=== PATIENT | female | born 1935 | race Caucasian/White ===

== ENCOUNTER 2023-05-11 13:01 | Outpatient (RCR) | payer MEDICARE, BC, SELFPAY ==
[2023-05-11] MEDS: INJECTAFER 265 MG IV (13:34)
[2023-05-11 13:39] VITALS: BP 124/53
[2023-05-11 14:05] VITALS: BP 117/56
== END 2023-05-12 13:41 | disposition home or self-care (01) ==
LOC: OID 13:01
PROVIDERS: ATTENDING PHYSICIAN Student in an Organized Health Care Education/Training Program
DX: D50.9 Iron deficiency anemia, unspecified (principal); I50.9 Heart failure, unspecified; N18.31 Chronic kidney disease, stage 3a; I48.0 Paroxysmal atrial fibrillation; Z79.01 Long term (current) use of anticoagulants
CPT/HCPCS: 96365; J1439

== ENCOUNTER 2023-05-16 15:05 | Emergency (ER) | payer MEDICARE, BC, SELFPAY ==
[2023-05-16] VITALS (9 sets, daily range): BP systolic 104–149; BP diastolic 42–67
[2023-05-16 16:43] LABS: % Basophils 0.4 % (0-2); % Eosinophils 1.5 % (0-6); % Immature Granulocytes 0.4 % (0-0.5); % Monocytes 9.2 % (1.7-9.3); % Neutrophils 71.5 % (42.2-75.2); Absolute Eosinophils 0.1 10^3/uL (0-0.7); Absolute Lymphocytes 1.2 10^3/uL (1.2-3.4); Absolute Monocytes 0.6 10^3/uL (0.1-0.6); Absolute Neutrophils 4.9 10^3/uL (1.4-6.5); Hemoglobin 12.6 g/dL (12.0-16.0); Mean Corp Hgb Conc. 34.1 g/dL (33.0-37.0); Mean Corpuscular Hgb 32.4 pg (27.0-31.0); Mean Corpuscular Volume 95.1 fL (81.0-99.0); Mean Platelet Volume 11.1 fL (7.4-10.4); Nucleated Red Blood Cells % 0 %; Platelet Count 198 10^3/uL (130-400); Red Blood Cell Count 3.89 10^6/uL (4.20-5.40); Red Cell Dist. Width 14.1 % (11.5-14.5); White Blood Cell Count 6.9 10^3/uL (4.8-10.8)
[2023-05-16 16:51] LABS: INR 1.43; PT 17.3 Sec (11.4-14.6)
[2023-05-16 17:04] LABS: Troponin I < 0.012 ng/ml
--- NOTE | 2023-05-16 17:52 | ED.GENMED ---
History of Present Illness
General
Chief Complaint: Chest Pain
Source: patient
Exam Limitations: none
Time Seen by Provider: 05/16/23 17:40
Travel History
Have you had any contact with someone who has COVID-19?: No
Do you have any symptoms of coronavirus? Fever > 100 degrees, chills, cough, shortness of breath, sore throat, loss of taste or smell, muscle aches, or headache?: No
History of Present Illness
History of Present Illness:
See MDM
Past History
Past History
ED Past Medical History: Arrthythmia, CHF and HTN
ED Past Surgical History: Cardiac and Orthopedic
Social History
Tobacco: Non-smoker
Alcohol: None
Phy Exam
Physical Exam
Physical Exam:
See MDM
Scores
Heart Score for Chest Pain Patients
STEMI patient?: No
History: Slightly or Non-Suspicious
ECG: Nonspecific Repolarization
Age: >/= 65 years
Risk Factors: 1 or 2 Risk Factors
Troponin: </= Normal Limit
Heart Score for Chest Pain Patients: 4
Heart Score Risk: 20.3% MACE over next 6 weeks
Course
Orders/Labs/Results
Orders:
Orders
05/16/23 15:08
Electrocardiogram (*1) Urgent
Reason for Study: Chest Pain
EKG- Treatment ONCE
05/16/23 16:28
Complete Blood Count/With Diff Urgent
Comprehensive Metabolic Panel Urgent
Prothrombin Time Urgent
Troponin I Urgent
05/16/23 18:27
Troponin I Urgent
Abnormal Lab Results
05/16/23
16:28
RBC 3.89 L 10^6/uL
(4.20-5.40)
MCH 32.4 H pg
(27.0-31.0)
MPV 11.1 H fL
(7.4-10.4)
Lymphocytes % 17.0 L %
(20.5-51.1)
PT 17.3 H Sec
(11.4-14.6)
Sodium 133 L mmol/L
(135-145)
BUN 34 H mg/dl
(7-17)
Creatinine 1.4 H mg/dL
(0.6-1.0)
Glucose 155 H mg/dl
(70-99)
AST 40 H U/L
(14-36)
ALT 40 H U/L
(0-35)
Total Protein 5.8 L g/dl
(6.3-8.2)
05/16/23 16:28
05/16/23 16:28
Vital Signs
Initial and Last Documented VS:
Initial Vital Signs
Temp Pulse Resp BP Pulse Ox
98.2 F 60 20 149/64 98
05/16/23 15:08 05/16/23 15:08 05/16/23 15:08 05/16/23 15:08 05/16/23 15:08
Last Documented Vital Signs
Temp Pulse Resp BP Pulse Ox
98.2 F 53 18 105/67 97
05/16/23 15:08 05/16/23 18:00 05/16/23 18:00 05/16/23 18:00 05/16/23 17:45
MDM/Problems Addressed
Differential Diagnosis Includes:
HPI and MDM Narrative:
87-year-old female presenting with resolved chest pain. Patient was walking after lunch and she noted a pain in her left chest that went to her left shoulder and her left neck. Did not last long. She is currently symptom-free. She is unsure if
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 However, patient states this type of pain felt a little bit different. Went into the room, patient states she already feels better and feels comfortable going home. I did
explain there is false reassurance and normal troponin so early. Patient states he feels comfortable going home but will allow a second troponin to be drawn.
I also explained my concern that her EKG shows a new right bundle branch block. Although this is not an ischemic change, it is different from her recent EKG. Patient appears unfazed by a EKG change. She believes this could be related to
electrical interference from her bladder stimulator. Patient states there is an issue with an EKG unless she can turn off her bladder stimulator but she forgot the remote at home
Regardless, she does have follow-up with cardiology in 2 weeks
Physical exam
General: Well appearing and non-toxic
HEENT: protecting airway
Neck: appears supple
CV: No evidence of cyanosis
Resp: No accessory muscle use. Lungs clear. Regular rate and rhythm
Abd: Non-distended
Extremities: No deformities. No leg edema. Reproducible left shoulder pain with shoulder range of motion. Extremity neurovascular intact
Neuro: alert
Psych: Normal affect
Skin: Intact
Problems Addressed including Acute and Chronic Conditions affecting care:
1. Chest pain
Acuity: acute
Prognosis: stable
Details: Initial troponin negative. Will repeat troponin. She has been pain-free ever since she has been in the emergency department
Updates
Troponin negative x 2. She feels comfortable going home. Discussed return precautions
Differential Diagnosis (but not limited to): ACS, shoulder pain, none cardiac chest pain
Testing considered: D-dimer but symptoms resolved and she is on Eliquis
Drug therapy (if applicable): OTC meds, please see d/c instruction regarding Rx drugs
Amount and/or Complexity of Data Reviewed
Clinical info obtained from: Patient
External data reviewed: N/A
Labs I independently reviewed (but not limited to): Troponin negative x 2
Radiology: N/A
Pulse Ox: not hypoxic
EKG independently reviewed: Sinus rhythm, right axis, right bundle branch block, no STEMI
Processing Supervisor: Sinus rhythm
Critical Care: N/A
Risk of Complication:
Social Determinants of health: Good social support
Discussed with other providers: N/A
Escalation of Care includes Admit/Obs: After being observed in the Emergency Department, pt stable for discharge.
Occasional wrong word or 'sound a like' substitutions may have occurred due to the inherent limitations of voice recognition software. Read the chart carefully and recognize, using context, where substitutions have occurred.
*Critical Care Note
Total Time (30-74mins, 75-104mins- exclusive of procedures): Not Applicable
ED Attending Note
-
Portions of this chart may have been created with voice recognition software.� Occasional wrong word or��sound alike� substitutions may have occurred due to the inherent limitations of voice recognition software.
Discharge Plan
Departure
Patient Disposition: Home (Routine Discharge)
Date of Disposition: 05/16/23
Time of Disposition: 19:15
Patient with high blood pressure during this ER visit?: No
Discharge Problem:
Chest pain
Prescriptions:
No Action
losartan 50 mg Tablet
50 mg PO DAILY
furosemide [Lasix] 40 mg Tablet
40 mg PO DAILY
polyethylene glycol 3350 [Miralax] 17 gram Powder In Packet
17 g PO DAILY
amiodarone 200 mg Tablet
200 mg PO DAILY
tramadol 50 mg Tablet
50 mg PO BID PRN (Reason: PAIN)
spironolactone 25 mg Tablet
25 mg PO DAILY
carvedilol 3.125 mg Tablet
3.125 mg PO BID
levothyroxine 88 mcg Tablet
88 mcg PO DAILY
calcium carbonate [Calcium 600] 600 mg calcium (1,500 mg) Tablet
600 mg PO DAILY
econazole 1 % Cream
1 applic TOPICAL DAILY
pravastatin 20 mg Tablet
20 mg PO DAILY
zolpidem [Ambien] 5 mg Tablet
5 mg PO HS PRN (Reason: SLEEP)
fluocinonide 0.05 % Cream
1 applic TOPICAL BID
Centrum Silver Tablet
1 tab PO DAILY
duloxetine 60 mg Capsule,Delayed Release(Dr/Ec)
60 mg PO DAILY
solifenacin 5 mg Tablet
5 mg PO DAILY
cholecalciferol (vitamin D3) [Vitamin D3] 50 mcg (2,000 unit) Capsule
50 mcg PO DAILY
Myrbetriq 50 mg Tablet Extended Release 24 Hr
50 mg PO DAILY
Eliquis 5 mg Tablet
5 mg PO BID
Jardiance 10 mg Tablet
10 mg PO DAILY
omeprazole 20 mg Tablet,Disintegrat, Delay Rel
20 mg PO BID
Glucosamine Chondroitin 550-30-1 mg Capsule
1 cap PO BID
Referrals:
Ysabel Ibarra MD [Family Provider] -
Activity Restrictions/Additional Instructions:
Please return for any worsening symptoms.
You may return at any time if you have further concerns.
Please follow up with your instructor psychiatric aide.
Thank you for choosing [facility].
Interventions
Interventions:
*Risk Screen - Suicide Last Done: 05/16/23 15:08
*General Assessment Last Done: 05/16/23 15:08
*Neglect/Abuse Screening Last Done: 05/16/23 15:08
ED- Fall Risk Assessment Last Done: 05/16/23 15:08
*ED COVID-19 Vaccine History Last Done: 05/16/23 15:08
ED- Cardiac Assessment Last Done: 05/16/23 15:08
[2023-05-16 18:01] LABS: ALT (SGPT) 40 U/L (0-35); AST (SGOT) 40 U/L (14-36); Albumin 3.5 g/dl (3.5-5.0); Alkaline Phosphatase 87 U/L (38-126); Blood Urea Nitrogen 34 mg/dl (7-17); Calcium 8.9 mg/dl (8.4-10.2); Carbon Dioxide 28 mmol/L (22-30); Chloride 99 mmol/L (98-107); Estimated Creatinine Clearance 26 ml/min; Glucose 155 mg/dl (70-99); Potassium 4.2 mmol/L (3.5-5.1); Sodium 133 mmol/L (135-145); Total Bilirubin 0.5 mg/dl (0.2-1.3); Total Protein 5.8 g/dl (6.3-8.2); eGFR 36.64
[2023-05-16 19:06] LABS: Troponin I < 0.012 ng/ml
--- NOTE | 2023-05-16 19:25 | EDRN ---
Dr Keller informed pt's HR in 40's on monitor when he printed up discharge papers. Dr Keller came to pt room to check on pt - pt sitting on side of stretcher with no complaint. This RN disconnected pt from monitoring equipment and pt stood up and
walked around room to make sure she felt well enough to go home. Dr Keller discussed discharge with pt and family member.
== END 2023-05-16 19:27 | disposition home or self-care (01) ==
LOC: EMR 15:05
PROVIDERS: Emergency Medicine; EMERGENCY PHYSICIAN Student in an Organized Health Care Education/Training Program; FAMILY PHYSICIAN Student in an Organized Health Care Education/Training Program
DX: R07.89 Other chest pain (principal)
CPT/HCPCS: 99284; 80053; 84484; 85025; 85610; 93005

== ENCOUNTER → 2023-05-27 07:23 | Outpatient (REF) | payer MEDICARE, BC, SELFPAY | LOC: DHCBC/DCA 07:23 | PROVIDERS: ATTENDING PHYSICIAN Nuclear Medicine Nuclear Cardiology; FAMILY PHYSICIAN Student in an Organized Health Care Education/Training Program | DX: R00.1 Bradycardia, unspecified (principal); R06.02 Shortness of breath; I48.0 Paroxysmal atrial fibrillation; I50.32 Chronic diastolic (congestive) heart failure; R07.9 Chest pain, unspecified | CPT/HCPCS: 78452; 93017; A9500; J2785 ==

== ENCOUNTER 2023-06-03 06:28 | Day surgery (SDC) | payer MEDICARE, BC, SELFPAY | END 2023-06-10 01:00 | LOC: GI 06:28 | PROVIDERS: ATTENDING PHYSICIAN Internal Medicine | DX: K22.2 Esophageal obstruction (principal); K44.9 Diaphragmatic hernia without obstruction or gangrene; K29.50 Unspecified chronic gastritis without bleeding; R13.10 Dysphagia, unspecified; Q39.8 Other congenital malformations of esophagus | CPT/HCPCS: 43249; 43239; 88305; 88342 ==

== ENCOUNTER → 2023-06-24 15:59 | Outpatient (REF) | payer MEDICARE, BC, SELFPAY | LOC: DHCBS HW 15:59 | PROVIDERS: ATTENDING PHYSICIAN Nuclear Medicine Nuclear Cardiology; FAMILY PHYSICIAN Student in an Organized Health Care Education/Training Program | DX: E85.9 Amyloidosis, unspecified (principal) | CPT/HCPCS: 93306 ==

== ENCOUNTER → 2023-07-14 10:21 | Outpatient (REF) | payer MEDICARE, BC, SELFPAY | LOC: RAD 10:21 | PROVIDERS: ATTENDING PHYSICIAN Nuclear Medicine Nuclear Cardiology; FAMILY PHYSICIAN Student in an Organized Health Care Education/Training Program | DX: I50.32 Chronic diastolic (congestive) heart failure (principal) | CPT/HCPCS: 78803; A9538 ==

== ENCOUNTER → 2023-07-27 16:58 | Outpatient (REF) | payer MEDICARE, BC, SELFPAY | LOC: HWWDC 16:58 | PROVIDERS: ATTENDING PHYSICIAN Student in an Organized Health Care Education/Training Program | DX: Z12.31 Encounter for screening mammogram for malignant neoplasm of breast (principal) | CPT/HCPCS: 77063; 77067 ==

== ENCOUNTER → 2023-10-17 10:43 | Outpatient (REF) | payer MEDICARE, BC, SELFPAY | LOC: RAD 10:43 | PROVIDERS: ATTENDING PHYSICIAN Psychiatry & Neurology Neurology; FAMILY PHYSICIAN Student in an Organized Health Care Education/Training Program | DX: M54.16 Radiculopathy, lumbar region (principal); M48.061 Spinal stenosis, lumbar region without neurogenic claudication | CPT/HCPCS: 72131 ==

== ENCOUNTER 2024-01-11 06:12 | Day surgery (SDC) | payer MEDICARE, BC, SELFPAY ==
[2024-01-04 08:36] VITALS: BMI 28.1
[2024-01-11 06:25] VITALS: BP 157/88
[2024-01-11 06:29] VITALS: BMI 28.1
[2024-01-11] MEDS: NORMOSOL-R/PLASMALYTE-A 1000 IV (06:30)
[2024-01-11 08:31] VITALS: BP 97/50
[2024-01-11 08:45] VITALS: BP 101/59
[2024-01-11 09:00] VITALS: BP 116/66
[2024-01-11 09:09] VITALS: BP 121/60
== END 2024-01-11 09:20 | disposition home or self-care (01) ==
LOC: SDS 06:12
PROVIDERS: ATTENDING PHYSICIAN Urology
DX: Z45.42 Encounter for adjustment and management of neurostimulator (principal); N39.41 Urge incontinence; N32.81 Overactive bladder
CPT/HCPCS: 64590; 64561; 72170; 76000; C1767; C1778; C1787; L8681

== ENCOUNTER → 2024-05-23 10:11 | Outpatient (REF) | payer MEDICARE, BC, SELFPAY | LOC: HWRAD 10:11 | PROVIDERS: FAMILY PHYSICIAN Student in an Organized Health Care Education/Training Program; REFERRING PHYSICIAN Internal Medicine Critical Care Medicine | DX: Z00.00 Encounter for general adult medical examination without abnormal findings (principal); M81.0 Age-related osteoporosis without current pathological fracture; R91.1 Solitary pulmonary nodule | CPT/HCPCS: 71250; 77080 ==

== ENCOUNTER → 2024-06-08 14:44 | Outpatient (REF) | payer MEDICARE, BC, SELFPAY | LOC: PAVMRI 14:44 | PROVIDERS: ATTENDING PHYSICIAN Psychiatry & Neurology Neurology; FAMILY PHYSICIAN Student in an Organized Health Care Education/Training Program | DX: M54.16 Radiculopathy, lumbar region (principal) | CPT/HCPCS: 72148 ==

== ENCOUNTER 2024-07-13 11:06 | Emergency (ER) | payer MEDICARE, BC, SELFPAY ==
[2024-07-13 11:11] VITALS: BP 148/67
[2024-07-13 11:42] LABS: % Basophils 0.4 % (0-2); % Eosinophils 1.1 % (0-6); % Immature Granulocytes 0.4 % (0-0.5); % Lymphocytes 19.7 % (20.5-51.1); % Monocytes 7.3 % (1.7-9.3); % Neutrophils 71.1 % (42.2-75.2); Absolute Eosinophils 0.1 10^3/uL (0-0.7); Absolute Lymphocytes 1.5 10^3/uL (1.2-3.4); Absolute Monocytes 0.5 10^3/uL (0.1-0.6); Absolute Neutrophils 5.2 10^3/uL (1.4-6.5); Hemoglobin 13.4 g/dL (12.0-16.0); Mean Corp Hgb Conc. 32.7 g/dL (33.0-37.0); Mean Corpuscular Hgb 31.5 pg (27.0-31.0); Mean Corpuscular Volume 96.5 fL (81.0-99.0); Mean Platelet Volume 10.2 fL (7.4-10.4); Nucleated Red Blood Cells % 0 %; Platelet Count 218 10^3/uL (130-400); Red Blood Cell Count 4.25 10^6/uL (4.20-5.40); Red Cell Dist. Width 14.2 % (11.5-14.5); White Blood Cell Count 7.4 10^3/uL (4.8-10.8)
[2024-07-13 12:22] LABS: ALT (SGPT) 22 U/L (0-35); AST (SGOT) 25 U/L (14-36); Albumin 4.1 g/dl (3.5-5.0); Alkaline Phosphatase 78 U/L (38-126); Blood Urea Nitrogen 30 mg/dl (7-17); Calcium 9.6 mg/dl (8.4-10.2); Carbon Dioxide 26 mmol/L (22-30); Chloride 102 mmol/L (98-107); Glucose 110 mg/dl (70-99); Potassium 4.1 mmol/L (3.5-5.1); Sodium 137 mmol/L (135-145); Total Bilirubin 0.8 mg/dl (0.2-1.3); Total Protein 6.5 g/dl (6.3-8.2); eGFR 43.81
[2024-07-13 12:36] LABS: TSH Reflex To Free T4 3.49 uIU/ml (0.47-4.68)
[2024-07-13 13:01] LABS: Urine Albumin Negative (Neg - Trace); Urine Bilirubin Negative (Negative); Urine Character Clear (Clear); Urine Color Yellow; Urine Glucose 4+ (Negative); Urine Ketone Negative (Negative); Urine Leukocyte Negative (Negative); Urine Nitrite Negative (Negative); Urine Occult Blood Negative (Negative); Urine Specific Gravity 1.015 (<1.030); Urine Urobilinogen Negative (Neg - 1+)
[2024-07-13 14:08] VITALS: BP 144/68
[2024-07-13] MEDS: KEFLEX 500 MG PO (14:14)
--- NOTE | 2024-07-16 00:56 | ED.GENMED ---
History of Present Illness
General
Chief Complaint: Change in Mental Status
Source: patient and family
Time Seen by Provider: 07/13/24 11:46
History of Present Illness
History of Present Illness:
88-year-old female presents to the emergency room with her daughter for evaluation of swelling, redness and bruising noted right lower extremity. Patient evidently had an injury to her right lower leg few days ago. Since then the patient has
noticed the ecchymosis traveled down to her foot. There is also some redness and swelling. This morning the patient's daughter thought the patient may not be herself with perhaps some slurring and some unsteady gait. However the patient is
currently at her baseline. Her daughter agrees the patient is currently acting herself. No fever, chills, nausea or vomiting.
Past History
Past History
ED Past Medical History: Arrthythmia, CHF and HTN
ED Past Surgical History: Cardiac and Orthopedic
Social History
Tobacco: Non-smoker
Alcohol: None
Phy Exam
Physical Exam
Physical Exam:
General: Awake, Alert, Oriented X3. No acute distress.
Vitals: unremarkable
Head: Atraumatic
Eyes: Pupils equal, EOMI
Throat: Airway intact, no exudates
Neck: Trachea midline
Lungs: Clear and equal b/l
Heart: Regular rate, no murmurs
Abd: Soft, Nontender, No pulsatile mass
Neuro: Cranial nerves intact, muscle strength equal bilaterally, cerebellar exam normal
Skin: Warm, dry, no rash
Extremities: pulses equal b/l. Right lower extremity: Area of ecchymosis noted from the mid yang down to the foot. There is also some erythema and mild tenderness.
Course
Orders/Labs/Results
Orders:
Orders
07/13/24 11:18
EKG [Electrocardiogram (*1)] Urgent
Reason for Study: Atrial Fibrillation
EKG- Treatment ONCE
07/13/24 11:32
Complete Blood Count/With Diff Urgent
Comprehensive Metabolic Panel Urgent
TSH Reflex To Free T4 Urgent
07/13/24 12:31
CT Head W/o Iv Contrast Urgent
Comment:
Reason For Exam: confusion
07/13/24 12:32
Urine Culture Reflexed from UA [Urinalysis Reflex To Culture] Urgent
Date Specimen was Collected: 07/13/24
Time Specimen was Collected: 11:58
07/13/24 13:50
Cephalexin Monohydrate [Keflex] 500 mg PO NOW STA
Abnormal Lab Results
07/13/24 07/13/24
11:32 12:32
MCH 31.5 H pg
(27.0-31.0)
MCHC 32.7 L g/dL
(33.0-37.0)
Lymphocytes % 19.7 L %
(20.5-51.1)
BUN 30 H mg/dl
(7-17)
Creatinine 1.2 H mg/dL
(0.6-1.0)
Glucose 110 H mg/dl
(70-99)
Urine Glucose 4+ A
(Negative)
07/13/24 11:32
07/13/24 11:32
Vital Signs
Initial and Last Documented VS:
Initial Vital Signs
Temp Pulse Resp BP Pulse Ox
98.4 F 63 18 148/67 98
07/13/24 11:11 07/13/24 11:11 07/13/24 11:11 07/13/24 11:11 07/13/24 11:11
Last Documented Vital Signs
Temp Pulse Resp BP Pulse Ox
98.4 F 70 20 144/68 98
07/13/24 11:11 07/13/24 14:08 07/13/24 14:08 07/13/24 14:08 07/13/24 14:08
MDM/Problems Addressed
Differential Diagnosis Includes:
Hematoma, cellulitis, CVA, TIA
MDM/Problems Addressed:
Patient presents primarily due to swelling, redness and bruising of the right lower extremity. I suspect these changes are due to blood within the subcutaneous tissue. However will cover with a course of antibiotics as daughter is highly concerned
about action. Patient also had a questionable period of slurred speech. Her CT shows an abnormal area in the thalamus of indeterminate age. Discussed this with neurology. Given patient is already anticoagulated and without masses in the
posterior circulation there is no benefit from any further testing or evaluation. He would not recommend any change in treatment as she is already anticoagulated. Given patient is at her baseline no benefit to hospitalization.
*Radiology
Radiology exam reviewed: radiology read reviewed
*Pulse Oximetry
Patient hypoxic: no
*EKG
Interpretation: abnormal
Heart Rate: 59
Rate: bradycardiac
Rhythm: sinus
QRS Pattern: right bundle branch block
Ischemia: non-specific ST changes
*Merchandise Stocker Interpretation
Rate: bradycardiac
Rhythm: sinus
*Critical Care Note
Total Time (30-74mins, 75-104mins- exclusive of procedures): Not Applicable
ED Attending Note
-
Portions of this chart may have been created with voice recognition software.� Occasional wrong word or��sound alike� substitutions may have occurred due to the inherent limitations of voice recognition software.
Discharge Plan
Departure
Patient Disposition: Home (Routine Discharge)
Date of Disposition: 07/13/24
Time of Disposition: 14:11
Patient with high blood pressure during this ER visit?: Yes
Condition: Good
Discharge Problem:
Contusion of right lower leg, Cellulitis
Instructions: Cellulitis (skin infection) in adults - ED discharge instructions, Contusion
Prescriptions:
New
cephalexin 500 mg capsule
500 mg PO BID 7 Days Qty: 14 0RF
No Action
furosemide [Lasix] 40 mg Tablet
40 mg PO DAILY
polyethylene glycol 3350 [Miralax] 17 gram Powder In Packet
17 g PO DAILY
amiodarone 200 mg Tablet
200 mg PO DAILY
tramadol 50 mg Tablet
50 mg PO BID
spironolactone 25 mg Tablet
25 mg PO DAILY
levothyroxine 88 mcg Tablet
88 mcg PO DAILY
calcium carbonate [Calcium 600] 600 mg calcium (1,500 mg) Tablet
600 mg PO DAILY
econazole nitrate 1 % Cream
1 applic TOPICAL DAILY
pravastatin 20 mg Tablet
20 mg PO HS
zolpidem [Ambien] 5 mg Tablet
5 mg PO HS PRN (Reason: SLEEP)
fluocinonide 0.05 % Cream
1 applic TOPICAL DAILY
Centrum Silver Tablet
1 tab PO DAILY
solifenacin 5 mg Tablet
5 mg PO DAILY
cholecalciferol (vitamin D3) [Vitamin D3] 50 mcg (2,000 unit) Capsule
50 mcg PO DAILY
Eliquis 5 mg Tablet
5 mg PO BID
Jardiance 10 mg Tablet
10 mg PO DAILY
omeprazole 20 mg Tablet,Disintegrat, Delay Rel
20 mg PO BID
Glucosamine Chondroitin 550-30-1 mg Capsule
1 cap PO BID
Gemtesa 75 mg Tablet
75 mg PO DAILY
Referrals:
Ysabel Ibarra MD [Family Provider] -
Interventions
Interventions:
*Risk Screen - Suicide Last Done: 07/13/24 11:11
*General Assessment Last Done: 07/13/24 11:11
*ED- Fall Risk Assessment Last Done: 07/13/24 11:11
*ED COVID-19 Vaccine History Last Done: 07/13/24 11:11
*Nursing Disposition Last Done: 07/13/24 14:19
ED- Pulmonary Assessment Last Done: 07/13/24 11:40
ED- Neurological Assessment Last Done: 07/13/24 11:40
ED- Cardiac Assessment Last Done: 07/13/24 11:40
Discharge Date and Time
Discharge Date/Time: 07/13/24 14:38
Print Language: [id number]
== END 2024-07-13 14:38 | disposition home or self-care (01) ==
LOC: EMR 11:06
PROVIDERS: EMERGENCY PHYSICIAN Emergency Medicine; FAMILY PHYSICIAN Student in an Organized Health Care Education/Training Program; REFERRING PHYSICIAN Nuclear Medicine Nuclear Cardiology
DX: S80.11XA Contusion of right lower leg, initial encounter (principal); L03.115 Cellulitis of right lower limb; X58.XXXA Exposure to other specified factors, initial encounter; I11.0 Hypertensive heart disease with heart failure; I50.9 Heart failure, unspecified; I48.91 Unspecified atrial fibrillation; Z79.01 Long term (current) use of anticoagulants
CPT/HCPCS: 99284; 70450; 80053; 81003; 84443; 85025; 93005

== ENCOUNTER → 2024-11-22 17:27 | Outpatient (REF) | payer MEDICARE, BC, SELFPAY | LOC: RAD 17:27 | PROVIDERS: ATTENDING PHYSICIAN Internal Medicine Critical Care Medicine; FAMILY PHYSICIAN Student in an Organized Health Care Education/Training Program | DX: R91.1 Solitary pulmonary nodule (principal) | CPT/HCPCS: 71046 ==

== ENCOUNTER → 2025-02-22 17:31 | Outpatient (REF) | payer MEDICARE, BC, SELFPAY | LOC: RCS 17:31 | PROVIDERS: ATTENDING PHYSICIAN Nuclear Medicine Nuclear Cardiology; FAMILY PHYSICIAN Student in an Organized Health Care Education/Training Program | DX: R00.1 Bradycardia, unspecified (principal); I48.0 Paroxysmal atrial fibrillation; I50.32 Chronic diastolic (congestive) heart failure | CPT/HCPCS: 93306 ==